=== PATIENT | female | born 1995 | race Caucasian/White ===

== ENCOUNTER 2022-09-05 14:17 | Emergency (ER) | payer MEDICARE, MEDICAID ==
[~2022-09-05 14:17] MED LIST: Magnevist 469MG/ML 20 ML VIAL ONE
[2022-09-05] MEDS ORDERED: Ketorolac Tromethamine 30 MG/ML VIAL ONE (14:47)
[2022-09-05] MEDS ORDERED: Cefepime 2 GM VIAL ONE (14:47)
[2022-09-05] MEDS ORDERED: Vancomycin 1 GM VIAL ONE (14:54)
[2022-09-05 14:57] LABS: Actual Bicarbonate (HCO3v) 19 mEq/L (22-28); Base Excess -5.7 mEq/L (-2 - +2); Calcium, Ionized (venous) 1.04 mmol/L (1.16-1.32); Chloride (VBG) 103 mmol/L (98-106); Hemoglobin (Hb) 14.3 g/dL (11.7-15.5); Potassium (VBG) 3.61 mmol/L (3.70-5.30); Puncture Site Other Site; RapidComm Collect By CBN; Sodium 137.7 mmol/L (133-146); pH (venous) 7.34 (7.32-7.43)
[2022-09-05 15:07] LABS: Hemoglobin 13.2 g/dL (12.0-15.5); Mean Corpuscular Hemoglobin 30.8 pg (27.0-33.0); Mean Corpuscular Volume 88.1 fl (81.6-98.3); Mean Platelet Volume 11.4 fl (7.4-10.4); Platelet Count 182 10x3/uL (150-450); RBC Distribution Width 11.8 % (11.5-14.5); Red Blood Cell (RBC) Count 4.28 10x6/uL (3.90-5.03); White Blood Cell (WBC) Count 9.2 10x3/uL (3.5-10.5)
[2022-09-05 15:10] LABS: BHCG - Serum Negative (NEGATIVE); Pregs Control Background? CLEAR/WHITE (CLR/WHITE); Pregs Control Bar Appear? YES (CONTROL BAR)
[2022-09-05] MEDS ORDERED: Lidocaine 1% PF 5 ML VIAL ONE (15:11)
[2022-09-05] MEDS ORDERED: Lorazepam 2 MG/ML VIAL ONE ×2 (15:12→18:14)
[2022-09-05 15:20] LABS: ALT (SGPT) 260 U/L (8-55); AST (SGOT) 375 U/L (5-34); Acetaminophen Less than 10.0 mcg/mL (10.0-30.0); Albumin 4.1 g/dL (3.5-5.0); Alcohol Less than 10 mg/dL (Less than 10); Alkaline Phosphatase 93 U/L (40-110); Anion Gap 17 mmol/L (10-20); BUN (Urea Nitrogen) 15 mg/dL (7.0-18.7); Bilirubin, Total 0.9 mg/dL (0.2-1.2); Calc. Creatinine Clearance 0 mL/min (70-130); Calcium 8.5 mg/dL (7.8-10.44); Carbon Dioxide 18 mmol/L (22-29); Chloride 106 mmol/L (98-107); Estimated GFR 84; Globulin 2.9 g/dL (2.4-3.5); Glucose 90 mg/dL (70-105); Lipase 33 U/L (8-78); Potassium 3.7 mmol/L (3.5-5.1); Salicylate Less than 8.0 mg/dL (15.0-30.0); Sodium 137 mmol/L (136-145)
[2022-09-05 15:37] LABS: MDiff Complete? YES
[2022-09-05 15:39] LABS: CKMB 0.4 ng/mL (0-6.6)
[2022-09-05 15:41] LABS: Band 2 % (5-11); Lymphocytes 52 % (21-51); Monocytes 11 % (0-10); Neutrophil 33 % (42-75); Reactive Lymphocytes 2 % (0-10)
[2022-09-05 15:42] LABS: Platelet Morphology Comment Appears Adequate; RBC Morphology Normal
[2022-09-05 16:13] LABS: Bilirubin Neg (Negative); Blood, Urine 25 (Negative); Clarity Clear (Clear); Glucose, Urine (Dipstick) Normal (Negative); Ketone, Urine 50 mg/dL (Negative); Leukocyte Negative (Negative); Nitrite Negative (Negative); Protein, Urine (Dipstick) 30 mg/dl (Neg-Trace); Urobilinogen Normal mg/dL (Less than 2)
[2022-09-05 16:19] LABS: Amphetamine Not Detected (NotDetected); Barbiturates Screen Not Detected (NotDetected); Benzodiazepine Screen Not Detected (NotDetected); Cocaine Metabolite Screen Not Detected (NotDetected); Methadone Not Detected (NotDetected); Methamphetamine Not Detected (NotDetected); Opiate Screen Not Detected (NotDetected); Oxycodone Screen Not Detected (NotDetected); Phencyclidine (PCP) Not Detected (NotDetected); THC/Cannabinoid Screen Not Detected (NotDetected); Tricyclic Screen Not Detected (NotDetected)
[2022-09-05 16:32] LABS: Bacteria/HPF None Seen HPF (None Seen); Mucous/LPF 1+ LPF (<2+); Squamous Epithelial 0-3 HPF (0-3); WBC/HPF 0-3 HPF (0-3)
[2022-09-05] MEDS ORDERED: Hydrocortisone Sod Succ/PF 100 mg/2 ml Vial ONE (16:42)
[2022-09-05 17:30] LABS: SARS-CoV-2 NAA Rapid Test DETECTED (NotDetected)
[2022-09-05 18:58] LABS: CSF, Glucose 52 mg/dl (40-70); CSF, Protein 61 mg/dL (15-40)
[2022-09-05 19:04] LABS: Color Of CSF Supernatant COLORLESS (Colorless); Tube # 3; Unspun CSF Color COLORLESS (Colorless)
[2022-09-05] MEDS ORDERED: Acetaminophen 650 MG Suppository ONE (20:02)
[2022-09-05 20:16] LABS: CSF Source CSF; Clarity Clear (Clear); Tube # 4
[2022-09-05 20:27] LABS: CSF RBC Count - Manual 8 /cu.mm (None Seen); CSF WBC/NonHematics Count-Man 3 /cu.mm (0-5)
[2022-09-05 20:29] LABS: CSF Source CSF; Clarity Hazy (Clear); Tube # 1
[2022-09-05 20:32] LABS: CSF RBC Count - Manual 777 /cu.mm (None Seen); CSF WBC/NonHematics Count-Man 4 /cu.mm (0-5)
== END 2022-09-06 00:44 | disposition short-term general hospital (02) ==
LOC: CSHERS 14:17
DX: U07.1 COVID-19 (principal); G93.9 Disorder of brain, unspecified; E03.9 Hypothyroidism, unspecified
CPT/HCPCS: 0240U; 62270; 70450; 70553; 71045; 80306; 80307; 82140; 82553; 82805; 82945; 83605; 83690; 84157; 84484; 84703; 87040; 87086; 89051; 93005 ×2; 96365; 96366; 96367; 96375; 96376; 99285; 36415; 80053; 81003; 81015; 84443; 85025; A9579; J0692; J1720; J1885; J2060; J3370